=== PATIENT | male | born 1995 | race Caucasian/White ===

== ENCOUNTER 2024-11-28 11:59 | Emergency (ER) | payer SELFPAY ==
[~2024-11-28] VITALS: Ht 167.6 cm; Wt 75.0 kg
[2024-11-28 12:05] VITALS: BP 114/72; PULSE 65; RESP 16; TEMP 98; O2SAT 100
[2024-11-28] MEDS ORDERED: EMTR200C3 PO (12:20)
[2024-11-28] MEDS ORDERED: ONDA4TAB50 PO (12:20)
[2024-11-28] MEDS ORDERED: VIRE PO (12:20)
[2024-11-28] MEDS ORDERED: RALT400T PO (12:20)
== END 2024-11-28 12:35 | disposition home or self-care (01) ==
LOC: ER 12:10
DX: Z77.21 Contact with and (suspected) exposure to potentially hazardous body fluids (principal); K21.9 Gastro-esophageal reflux disease without esophagitis; Z79.624 Long term (current) use of inhibitors of nucleotide synthesis
CPT/HCPCS: 99283